=== PATIENT | male | born 1995 | race Caucasian/White ===

== ENCOUNTER 2016-07-09 13:25 | Emergency (ER) | payer OTHER ==
--- NOTE | 2016-07-09 13:50 | EDM.PDOC ---
ED HPI GENERAL MEDICAL PROBLEM - General Chief Complaint: Body Fluid Exposure Stated Complaint: EXPOSURE Time Seen by Provider: 07/09/16 13:43 - History of Present Illness INITIAL COMMENTS - FREE TEXT/NARRATIVE: HISTORY AND PHYSICAL: History of present illness: Patient 20-year-old male presents status post blood exposure this was blood that was splashed into the face there is no open wounds no needle stick source is known and protocol has been actuated Review of systems: As per history of present illness and below otherwise all systems reviewed and negative. Past medical history: As per history of present illness and as reviewed below otherwise noncontributory. Surgical history: As per history of present illness and as reviewed below otherwise noncontributory. Social history: No reported history of drug or alcohol abuse. Family history: As per history of present illness and as reviewed below otherwise noncontributory. Physical exam: Deferred Diagnostics: Per protocol Therapeutics: None Impression: #1 body fluid exposure Definitive disposition and diagnosis as appropriate pending reevaluation and review of above. ED ROS GENERAL - Review of Systems Review Of Systems: ROS reveals no pertinent complaints other than HPI. ED EXAM, GENERAL - Physical Exam Exam: See Below (See history and physical) Course - Orders/Labs/Meds Orders: Active Orders 24 hr Category Date Time Status HEPATITIS B SURFACE ANTIGEN [REF] Stat Lab 07/09/16 13:45 Ordered HEPATITIS C AB [REF] Stat Lab 07/09/16 13:45 Ordered HIV12 AG/AB 4TH GEN [CHEM] Stat Lab 07/09/16 13:45 Ordered Departure - Departure Time of Disposition: 13:49 Disposition: Home, Self-Care 01 Condition: good Clinical Impression: Patient exposure to body fluids Forms: ED Department Discharge Additional Instructions: The following information is given to patients seen in the emergency department who are being discharged to home. This information is to outline your options for follow-up care. We provide all patients seen in our emergency department with a follow-up referral. The need for follow-up, as well as the timing and circumstances, are variable depending upon the specifics of your emergency department visit. If you don't have a primary care physician on staff, we will provide you with a referral. We always advise you to contact your personal physician following an emergency department visit to inform them of the circumstance of the visit and for follow-up with them and/or the need for any referrals to a consulting specialist. The emergency department will also refer you to a specialist when appropriate. This referral assures that you have the opportunity for followup care with a specialist. All of these measure are taken in an effort to provide you with optimal care, which includes your followup. Under all circumstances we always encourage you to contact your private physician who remains a resource for coordinating your care. When calling for followup care, please make the office aware that this follow-up is from your recent emergency room visit. If for any reason you are refused follow-up, please contact the [facility] emergency department at and asked to speak to the emergency department charge nurse. Follow up primary medical doctor and employee health as discussed - My Orders Last 24 Hours: My Active Orders 07/09/16 13:45 HEPATITIS B SURFACE ANTIGEN [REF] Stat HEPATITIS C AB [REF] Stat HIV12 AG/AB 4TH GEN [CHEM] Stat - Assessment/Plan Last 24 Hours: My Active Orders 07/09/16 13:45 HEPATITIS B SURFACE ANTIGEN [REF] Stat HEPATITIS C AB [REF] Stat HIV12 AG/AB 4TH GEN [CHEM] Stat
== END 2016-07-09 14:16 | disposition home or self-care (01) ==
LOC: MW.ED 13:25
DX: Z77.21 Contact with and (suspected) exposure to potentially hazardous body fluids (principal)
CPT/HCPCS: 36415; 86706; 86803; 87389; 99283